=== PATIENT | female | born 1955 | race Two or more races ===

== ENCOUNTER 2016-12-29 11:47 | Emergency (ER) | payer MEDICAID ==
[~2016-12-29] VITALS: Ht 162.6 cm; Wt 81.6 kg
[2016-12-29] MEDS ORDERED: Levophed 4mg/4mL Inj IV ONE (12:19)
[2016-12-29] MEDS ORDERED: EPINEPHrine 1mg/10ml Syringe IV ONE (12:19)
[2016-12-29] MEDS ORDERED: Zemuron 50mg/5ml Inj IV ONE (12:19)
[2016-12-29] MEDS ORDERED: D5W 275ml ONE (12:19)
[2016-12-29] MEDS ORDERED: Sodium Bicarbonate 50ml Carp ONE (12:19)
[2016-12-29] MEDS ORDERED: Calcium Chloride 10% 10ml carpuject IVP ONE (12:19)
[2016-12-29] MEDS ORDERED: Atropine Inj 1mg/10ml Syr ONE (12:19)
[2016-12-29 12:23] VITALS: BP 140/100
[2016-12-29 12:32] LABS: MEAN CORPUSCULAR HEMOGLOBIN 31.1 PG (27.0-31.0); MEAN CORPUSCULAR HGB CONC 31.3 G/DL (32.0-36.0); MEAN CORPUSCULAR VOLUME 99 FL (80-99); MEAN PLATELET VOLUME 6.5 FL (6.5-10.1); PLATELET COUNT 287 K/UL (150-450); RED BLOOD COUNT 4.86 M/UL (4.20-5.40); RED CELL DISTRIBUTION WIDTH 12.6 % (11.6-14.8); WHITE BLOOD COUNT 19.9 K/UL (4.8-10.8)
--- NOTE | 2016-12-29 12:42 | Diagnostic Imaging Report ---
Indications: Shortness of breath Technique: AP Findings: Comparison: None Suboptimal inspiration limits evaluation. Linear densities over elevated right hemidiaphragm. Left lung clear. Heart size, pulmonary vasculature within normal limits. No pleural abnormalities. Aortic arch mildly calcified. Mild widening of the left paratracheal soft tissues. IMPRESSION: Subsegmental atelectasis right lung base Aortosclerosis Apparent widening of left paratracheal soft tissues may represent tortuous/ectatic vasculature. Enlarged thyroid or other pathology not excludable. Upright PA and lateral chest radiographs with better inspiratory effort and optimal technique recommended for more complete evaluation.
[2016-12-29 12:53] LABS: ALANINE AMINOTRANSFERASE 13 U/L (3-33); ALBUMIN/GLOBULIN RATIO 1.2 (1.0-2.7); ANION GAP 27 (5-15); ASPARTATE AMINO TRANSFERASE 9 U/L (5-40); CARBON DIOXIDE 18 mEQ/L (20-30); CHLORIDE 92 mEQ/L (98-107); CREATININE 1.2 mg/dL (0.5-0.9); GLOMERULAR FILTRATION RATE 45.7 mL/min (>60); HEMOLYSIS 5; MAGNESIUM 2.5 mg/dL (1.7-2.5); POTASSIUM 3.2 mEQ/L (3.4-4.9); SODIUM 137 mEQ/L (135-145); TOTAL PROTEIN 5.7 g/dL (6.6-8.7); TROPONIN I < 0.30 ng/mL (<=0.30)
[2016-12-29 12:59] LABS: REFLEX LACTIC ACID YES OR NO YES
[2016-12-29 13:00] VITALS: BP 233/135
[2016-12-29 13:03] LABS: CKMB < 1.5 ng/mL (< 3.8)
[2016-12-29 13:30] VITALS: BP 211/186
[2016-12-29 13:57] LABS: BAND NEUTROPHILS % (MANUAL) 0 % (0-8); BASOPHILS % (MANUAL) 0 % (0-2); EOSINOPHILS % (MANUAL) 0 % (0-3); LYMPHOCYTES % (MANUAL) 23 % (20-45); NEUTROPHILS % (MANUAL) 72 % (45-75); PLATELET ESTIMATE ADEQUATE; PLATELET MORPHOLOGY NORMAL; TOTAL CELLS COUNTED 100
[2016-12-29 13:58] LABS: MACROCYTES 1+
[2016-12-29 14:00] VITALS: BP 0/0
--- NOTE | 2016-12-29 14:45 | Emergency Room Report ---
History of Present Illness General Chief Complaint: Generalized Weakness Source: Medical Record Present Illness HPI 61-year-old female presents to ED for evaluation. Per EMS patient came from a clinic complaining of nausea and vomiting x1 day. Patient Accu-Chek was greater than 400. Patient has no known history of diabetes. Patient states she feels nauseous and dizzy. Denies chest pain or shortness of breath. No other aggravating or relieving factors. Denies any other associated symptoms Allergies: Coded Allergies: No Known Allergies (Unverified , 12/29/16) Patient History Past Medical History: none Past Surgical History: none Pertinent Family History: none Social History: Denies: alcohol use, drug use, smoking Last Menstrual Period: unknow Now: No Immunizations: UTD Reviewed Nursing Documentation: PMH: Agreed, PSxH: Agreed Nursing Documentation-PMH Past Medical History: No History, Except For Review of Systems All Other Systems: negative except mentioned in HPI Physical Exam Vital Signs Date Time Temp Pulse Resp B/P Pulse Ox O2 Delivery O2 Flow Rate FiO2 12/29/16 11:43 97.9 108 18 96/52 98 Room Air 12/29/16 13:16 15.0 100 Sp02 EP Interpretation: reviewed, normal General Appearance: GCS 15, non-toxic, mild distress, lethargic Head: normocephalic, atraumatic Eyes: bilateral eye PERRL, bilateral eye normal inspection ENT: hearing grossly normal, normal pharynx, no angioedema, normal voice Neck: full range of motion, supple/symm/no masses Respiratory: chest non-tender, lungs clear, normal breath sounds, speaking full sentences Cardiovascular #1: no edema, tachycardia Cardiovascular #2: 2+ carotid (R), 2+ carotid (L), 2+ radial (R), 2+ radial (L) , 2+ dorsalis pedis (R), 2+ dorsalis pedis (L) Gastrointestinal: normal bowel sounds, non tender, soft, non-distended, no guarding, no rebound Rectal: deferred Genitourinary: normal inspection, no CVA tenderness Musculoskeletal: back normal, gait/station normal, normal range of motion, non- tender, calf tenderness Neurologic: alert, responsive, motor strength/tone normal, sensory intact, speech normal, other - lethargic Psychiatric: other - lethargic Reflexes: 3+ bicep (R), 3+ bicep (L), 3+ tricep (R), 3+ tricep (L), 3+ knee (R) , 3+ knee (L) Skin: normal color, no rash, warm/dry, well hydrated Lymphatic: no adenopathy Procedures Critical Care Time Critical Care Time i. I feel this is a highly complex case requiring extensive working including EKG/Rhythm strip, Xray/CT/US, Blood/urine lab work, repeat exams while in ED, and administration of strong opiates/narcotics for pain control, admission to hospital or close patient follow up. Total time: 30 min bedside evaluation and treatment excludes procedures (EKG). Reason for critical care: Altered, cardiac arrest Possible complications: hypotension, hypertension, CT, shock, arrhythmias, metabolic acidosis, end organ damage, respiratory failure. Interventions: Labs, IV fluids, intubation, chest compressions, ACLS medications , amiodarone, defibrillation, central line Course: Patient brought in for nausea and vomiting. Glucose critically high. After initial evaluation patient became altered and bradycardic. Patient intubated. Chest compressions started. Given ACLS medications. Given calcium and bicarbonate. Patient rhythm initially asystole then ventricular fibrillation. Patient shocked multiple times. Patient ultimately regaining pulse temporarily. Central line placed. Patient again lost pulses. After multiple rounds of medication patient remains in asystole. Doses is poor, discussed with family. Agreed to terminate efforts. Resuscitative efforts terminated. Patient expires Consultations: nursing staff, EMS, family Performed by: Dr Mccain Tolerated well condition = expires j. because of unstable vital signs this patient had a condition that could potentially threaten life or limb. I feel this is a critical patient who required my full attention while patient was considered critical. Total Critical Care Time excluding procedures was greater than 35 minutes Cardioversion Cardioversion: Consent: Verbal Indication: Other - Vfib Type: Desynchonis Response: Other - vfib Attempts: Other - seven Patient Tolerated: Other - patient expires Complications: Other - patient expries. Central Line Central Line : Consent: Emergent Central Line Lumen: triple Maximal Sterile Barrier Tech: yes cap, yes mask, yes sterile gown, yes sterile gloves, yes large sterile sheet, yes hand hygiene, yes chlorhexidine prep Central Line Postion: femoral (R) Anesthesia: Lidocaine Complications: none Central Line Post Position: sutured, good blood return Attempts: One Patient Tolerated: Well Complications: None CPR/Code Blue CPR/Code Blue Narrative Please see CODE BLUE sheet for detailed narrative Intubation Intubation : Consent: Emergent Intubation Method: orotracheal Tube Size (cm): 7.0 Medications: Rocuronium Breath Sounds after Intubation: equal Intubation Complications: no complications Post Intubation Xray: No - patient Attempts: One Patient Tolerated: Well Complications: None Medical Decision Making Diagnostic Impression: Primary Impression: Cardiac arrest Additional Impressions: Hyperglycemia Lactic acidosis ARF (acute renal failure) Qualified Codes: N17.9 - Acute kidney failure, unspecified ER Course 61-year-old female presents to ER for evaluation of nausea and vomiting, Accu- Chek critically high. No known medical history Differential-hyperglycemia, DKA, dehydration Patient placed on stretcher initial history and physical I ordered labs, IV fluids, EKG. After initial evaluation patient became bradycardic and unresponsive. Patient lost pulses. Patient was being ventilated with bag valve mask. Compression started. Patient intubated. Patient given calcium and bicarbonate. Given epinephrine multiple times. Initial rhythm asystole. Patient then went into ventricular fibrillation. Patient was shocked multiple times without conversion. Patient was given amiodarone for refractory ventricular fibrillation Labs-significant leukocytosis, glucose greater than 700, anion gap elevated, lactic acid greater than 12, troponins negative EKG shows sinus tachycardia no acute ischemic changes identified Chest x-ray shows some atelectasis Patient did regain pulses momentarily. Patient became then bradycardic and lost pulses. Central line was placed. After multiple rounds of epinephrine patient never regained pulses. I discussed the case with the daughter. She stated that patient has no medical history and only goes to clinics occasionally. Patient was complaining of some left leg pain and arm pain for the last few days. Understands the poor prognosis. Agrees to terminate efforts. Resuscitative efforts are terminated Diagnosis-cardiac arrest, hyperglycemia, lactic acidosis, ARF Patient expires Labs Test 12/29/16 12:00 White Blood Count 19.9 K/UL (4.8-10.8) Red Blood Count 4.86 M/UL (4.20-5.40) Hemoglobin 15.1 G/DL (12.0-16.0) Hematocrit 48.2 % (37.0-47.0) Mean Corpuscular Volume 99 FL (80-99) Mean Corpuscular Hemoglobin 31.1 PG (27.0-31.0) Mean Corpuscular Hemoglobin Concent 31.3 G/DL (32.0-36.0) Red Cell Distribution Width 12.6 % (11.6-14.8) Platelet Count 287 K/UL (150-450) Mean Platelet Volume 6.5 FL (6.5-10.1) Neutrophils (%) (Auto) % (45.0-75.0) Lymphocytes (%) (Auto) % (20.0-45.0) Monocytes (%) (Auto) % (1.0-10.0) Eosinophils (%) (Auto) % (0.0-3.0) Basophils (%) (Auto) % (0.0-2.0) Differential Total Cells Counted 100 Neutrophils % (Manual) 72 % (45-75) Lymphocytes % (Manual) 23 % (20-45) Monocytes % (Manual) 5 % (1-10) Eosinophils % (Manual) 0 % (0-3) Basophils % (Manual) 0 % (0-2) Band Neutrophils 0 % (0-8) Platelet Estimate Adequate Platelet Morphology Normal Macrocytosis 1+ Sodium Level 137 mEQ/L (135-145) Potassium Level 3.2 mEQ/L (3.4-4.9) Chloride Level 92 mEQ/L (98-107) Carbon Dioxide Level 18 mEQ/L (20-30) Anion Gap 27 (5-15) Blood Urea Nitrogen 14 mg/dL (7-23) Creatinine 1.2 mg/dL (0.5-0.9) Estimat Glomerular Filtration Rate 45.7 mL/min (>60) Glucose Level 769 mg/dL (74-106) Lactic Acid Level 12.50 mmol/L (0.66-2.22) Calcium Level 9.0 mg/dL (8.6-10.2) Magnesium Level 2.5 mg/dL (1.7-2.5) Total Bilirubin 0.4 mg/dL (0.0-1.2) Aspartate Amino Transf (AST/SGOT) 9 U/L (5-40) Alanine Aminotransferase (ALT/SGPT) 13 U/L (3-33) Alkaline Phosphatase 102 U/L (35-104) Total Creatine Kinase 51 U/L (26-140) Creatine Kinase MB < 1.5 ng/mL (< 3.8) Creatine Kinase MB Relative Index 2.9 Troponin I < 0.30 ng/mL (<=0.30) Total Protein 5.7 g/dL (6.6-8.7) Albumin 3.2 g/dL (3.5-5.2) Globulin 2.5 g/dL Albumin/Globulin Ratio 1.2 (1.0-2.7) Acetone Level Negative (NEGATIVE) EKG Diagnostic Results Rate: tachycardiac Rhythm: NSR ST Segments: no acute changes ASA given to the pt in ED: No Rhythm Strip Diag. Results EP Interpretation: yes Rhythm: NSR, no PVC's, no ectopy Chest X-Ray Diagnostic Results Chest X-Ray Diagnostic Results : Chest X-Ray Ordered: Yes # of Views/Limited/Complete: 1 View Indication: Other - altered EP Interpretation: No Interpretation: other - atelectasis, R lung base. Impression: Other Last Vital Signs Date Time Temp Pulse Resp B/P Pulse Ox O2 Delivery O2 Flow Rate FiO2 12/29/16 14:00 98.2 0 0 0/0 0 Room Air 12/29/16 13:16 100 12/29/16 13:16 15.0 Status: worsened Disposition: Condition: Referrals: NOT CHOSEN JHON/,REFERRING (PCP) COLEEN MCCAIN M.D. Dec 29, 2016 14:45
== END 2016-12-29 14:00 | disposition expired ==
LOC: EDBD 11:47 → EMR 12:18 → EDBEDREQ 13:19 → EDBEDREQSVC 13:19 → EMR 14:00 → CANBEDREQ 14:03
DX: I46.9 Cardiac arrest, cause unspecified (principal); E11.65 Type 2 diabetes mellitus with hyperglycemia; E87.2 Acidosis; N17.9 Acute kidney failure, unspecified
CPT/HCPCS: 31500; 36415; 71010; 80053; 82009; 82550; 82553; 83605; 83735; 84484; 85007; 85025; 87040; 92950; 92960; 93005; 94002; 94664; 96374; 96375; 99291; J0171; J3490; Z7502